=== PATIENT | male | born 1985 ===

== ENCOUNTER 2016-07-24 19:14 | Emergency (ER) | payer OTHER ==
[2016-07-24 19:58] VITALS: BP 133/87
[2016-07-24] MEDS ORDERED: TORADOL IM ONE (23:28)
--- NOTE | 2016-07-24 23:33 | Emergency Department Report ---
ED Neck Pain/Injury HPI - General Chief Complaint: Neck Pain/Injury Stated Complaint: NECK, UPPER BACK, AND SHOULDER PAIN Time Seen by Provider: 07/24/16 23:27 Source: patient, RN notes reviewed Mode of arrival: Ambulatory Limitations: No Limitations - History of Present Illness Initial Comments: Patient presents with bilateral shoulder, neck, upper back pain. He states it started approximately a year ago. 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 He has been trying heat and ibuprofen 800 mg with no help. Any injury in the recent or distant past. MD Complaint: neck pain -: Gradual Radiation: right shoulder Severity: constant Severity scale (0 -10): 10 Quality: sharp, aching Consistency: constant Worsens With: movement of neck Associated Symptoms: none Treatments Prior to Arrival: Ibuprofen, heat therapy - Related Data Previous Rx's Medication Instructions Recorded Last Taken Type Cyclobenzaprine [Flexeril 10 MG 10 mg PO BID PRN #20 tablet 07/24/16 Unknown Rx TAB] Diclofenac Sodium 75 mg PO DAILY PRN #14 tablet. 07/24/16 Unknown Rx Allergies Allergy/AdvReac Type Severity Reaction Status Date / Time Cephalosporins Allergy Hives Verified 07/24/16 19:59 ED Review of Systems ROS: Stated complaint: NECK, UPPER BACK, AND SHOULDER PAIN Other details as noted in HPI Constitutional: denies: chills, fever ENT: denies: ear pain, throat pain Respiratory: denies: cough, shortness of breath, wheezing Cardiovascular: denies: chest pain, palpitations Genitourinary: denies: urgency, dysuria Musculoskeletal: as per HPI Skin: denies: rash, lesions Neurological: denies: headache, weakness, paresthesias ED Past Medical Hx - Past Medical History Previous Medical History?: No Hx Asthma: Yes - Surgical History Past Surgical History?: Yes Additional Surgical History: right hand - Social History Smoking Status: Current Every Day Smoker Substance Use Type: None - Medications Home Medications: Home Medications Medication Instructions Recorded Confirmed Last Taken Type Cyclobenzaprine [Flexeril 10 MG 10 mg PO BID PRN #20 tablet 07/24/16 Unknown Rx TAB] Diclofenac Sodium 75 mg PO DAILY PRN #14 tablet. 07/24/16 Unknown Rx ED Physical Exam - General Limitations: No Limitations General appearance: alert, in no apparent distress - Head Head exam: Present: atraumatic, normocephalic - Eye Eye exam: Present: normal appearance, PERRL - ENT ENT exam: Present: mucous membranes moist - Neck Neck exam: Present: normal inspection, tenderness (greater on right), full ROM. Absent: lymphadenopathy - Respiratory Respiratory exam: Present: normal lung sounds bilaterally. Absent: respiratory distress - Cardiovascular Cardiovascular Exam: Present: regular rate, normal rhythm. Absent: systolic murmur, diastolic murmur, rubs, gallop - GI/Abdominal GI/Abdominal exam: Present: soft, normal bowel sounds - Extremities Exam Extremities exam: Present: normal inspection, full ROM, normal capillary refill. Absent: tenderness - Back Exam Back exam: Present: normal inspection, full ROM, tenderness (greater on right ) - Neurological Exam Neurological exam: Present: alert, oriented X3 - Psychiatric Psychiatric exam: Present: normal affect, normal mood - Skin Skin exam: Present: warm, dry, intact, normal color. Absent: rash ED Course Vital Signs 07/24/16 19:56 Temperature 98.6 F Pulse Rate 69 Respiratory 18 Rate Blood Pressure 133/87 O2 Sat by Pulse 100 Oximetry ED Medical Decision Making - Medical Decision Making Patient presents with muscular pain and spasm in trapezius. I will give flexiril and diclofenac and refer to his PCP and ortho. Encourage stretching, chiropractor, message, exercise, heat, ice and rest. Nexus and [place] criteria negative. - Differential Diagnosis muscle spasm, muscle strain, muscle sprain Critical Care Time: No Critical care attestation.: If time is entered above; I have spent that time in minutes in the direct care of this critically ill patient, excluding procedure time. ED Disposition Clinical Impression: Trapezius muscle spasm, Musculoskeletal pain Disposition: DISCHARGED TO HOME OR SELFCARE Is pt being admited?: No Does the pt Need Aspirin: No Condition: Stable Instructions: Muscle Spasm (ED), Musculoskeletal Pain (ED), Neck Exercises (GEN ) Additional Instructions: Encourage, ice, heat, chiropractor, message, rest, stretching, rest. Prescriptions: Diclofenac Sodium 75 mg PO DAILY PRN #14 tablet.dr CURTIS Reason: Pain Cyclobenzaprine [Flexeril 10 MG TAB] 10 mg PO BID PRN #20 tablet PRN Reason: Muscle Spasm Referrals: PRIMARY CARE, [Primary Care Provider] - 3-5 Days NABIL TREADWELL MD [Staff Physician] - 3-5 Days Forms: Work/School Release Form(ED) Time of Disposition: 23:37
== END 2016-07-24 23:56 | disposition home or self-care (01) ==
LOC: ED 19:14
DX: M62.838 Other muscle spasm (principal); M79.1 Myalgia; J45.909 Unspecified asthma, uncomplicated; F17.200 Nicotine dependence, unspecified, uncomplicated; Z88.0 Allergy status to penicillin
CPT/HCPCS: 96372; 99282; J1885